=== PATIENT | male | born 1990 | race Two or more races ===

== ENCOUNTER 2023-08-13 11:32 | Emergency (ER) | payer OTHER ==
[~2023-08-13] VITALS: Ht 180.3 cm; Wt 95.0 kg
[2023-08-13 11:47] VITALS: BP 119/76; PULSE 75; RESP 18; TEMP 98
[2023-08-13] MEDS: BACITRACIN 28 GM OINTMENT TP ONE (12:26)
[2023-08-13] MEDS: IBUPROFEN 600 MG TABLET PO ONE (12:26)
[2023-08-13] MEDS: ACETAMINOPHEN 500 MG TABLET PO ONE (12:26)
[2023-08-13] MEDS: PERTUSS(ACELL),DIPH,TET/PF 0.5 ML SYRINGE [ADULT] IM. ONE (12:27)
[2023-08-13] MEDS ORDERED: ACET-3385 PO (13:11)
[2023-08-13] MEDS ORDERED: IBUP-1492 PO (13:11)
== END 2023-08-13 13:47 | disposition home or self-care (01) ==
LOC: EMS 11:32
DX: S60.221A Contusion of right hand, initial encounter (principal); S50.312A Abrasion of left elbow, initial encounter; S80.212A Abrasion, left knee, initial encounter; F12.90 Cannabis use, unspecified, uncomplicated; V29.99XA Rider (driver) (passenger) of other motorcycle injured in unspecified traffic accident, initial encounter; Y93.89 Activity, other specified; Y92.89 Other specified places as the place of occurrence of the external cause; Y99.8 Other external cause status
CPT/HCPCS: 90471; 90715; 99283